=== PATIENT | female | born 1990 | race Asian ===

== ENCOUNTER 2017-07-13 00:41 | Emergency (ER) | payer MEDICAID ==
[~2017-07-13] VITALS: Ht 162.6 cm; Wt 73.0 kg
[2017-07-13 01:04] VITALS: BP 142/79
== END 2017-07-13 01:35 | disposition left against medical advice (07) ==
LOC: ER 00:41
DX: R07.89 Other chest pain (principal); Z53.21 Procedure and treatment not carried out due to patient leaving prior to being seen by health care provider
CPT/HCPCS: 93005